=== PATIENT | female | born 1960 | race Caucasian/White ===

== ENCOUNTER → 2018-06-05 16:00 | Outpatient (CLI) | payer OTHER, SELFPAY | PROVIDERS: PCP Internal Medicine | DX: Z23 Encounter for immunization (principal) | CPT/HCPCS: 90471; 90686 ==

== ENCOUNTER → 2018-11-13 15:13 | Outpatient (CLI) | payer OTHER, SELFPAY ==
--- NOTE | 2018-11-13 | DI.RAD.S_ITS ---
PROCEDURE: XR HAND LT MIN 3V INDICATIONS: Ongoing left hand swelling and injury in March. TECHNIQUE: 3 views of the hand(s) acquired. COMPARISON: None. FINDINGS: Bones: No fractures or dislocations. Carpal bones are normally aligned. No suspicious bony lesions. First CMC and triscaphe joint degeneration, mild. Diffuse interphalangeal joint degeneration most pronounced the DIP joints of the index and middle finger where there are chronic ununited osteophytes. Soft tissues: No suspicious soft tissue calcifications. IMPRESSION: Mild degenerative changes as above. If the patient's pain or other symptoms persist, consider further evaluation with MRI Dictated by: Kana Narvaez M.D. on 11/13/2018 at 16:24 Approved by: Kana Narvaez M.D. on 11/13/2018 at 16:38
== END ==
PROVIDERS: PCP Internal Medicine; Visit Provider Internal Medicine
DX: S69.92XA Unspecified injury of left wrist, hand and finger(s), initial encounter (principal); M79.89 Other specified soft tissue disorders; M18.12 Unilateral primary osteoarthritis of first carpometacarpal joint, left hand; M19.042 Primary osteoarthritis, left hand
CPT/HCPCS: 73130

== ENCOUNTER 2019-01-23 12:15 | Outpatient (RCR) | payer OTHER, SELFPAY ==
--- NOTE | 2018-12-26 17:30 | PT.OIE ---
Current Diagnoses Primary osteoarthritis, unspecified hand (12/26/18) Localized swelling, mass and lump, left upper limb (12/26/18) Past Surgical History Status post dilation and curettage Status post hysterectomy Provider Visit Care Team Role Provider Type AMANDA Walls Attending Provider Advanced Security System Analyst Primary Care Provider Specialty: Family Practice Address: [address] [place] [address], [id number] Email: [email or web address] Physical Therapy Initial Evaluation PT-OP-A Visit Information Start: 12/26/18 16:59 Freq: Status: Active Protocol: Document 12/26/18 17:00 EA (Rec: 12/26/18 17:11 EA [id number]) Out-Patient Physical Therapy Visit Information Visit Information Visit Type Initial Evaluation Visit Start Time 16:00 Visit Stop Time 16:45 Total Visit Minutes 45 Visit Number 1 Evaluation Information Evaluation Date 12/26/18 PT-OP-B Current Condition Start: 12/26/18 16:59 Freq: Status: Active Protocol: Document 12/26/18 17:00 EA (Rec: 12/26/18 17:11 EA [id number]) Current Condition History of Current Condition Onset Date Last summer (2017) History of Current Condition No significant past medical history except she recalled when she played volley ball with her grand kids and thinks jammed her middle finger in the ball. No treatment given and just live day by day. Patient had an x-ray recently with a results of multiple hand joint OA. Prior Treatments and Tests Recent hand X-rays with a results of DIP OA at 2nd and 3rd Future Testing and Treatments Planned None identified Treatment Goals Patient/Caregiver Goals Patient would like to get rid of the pain and be able to use her hand for work. Prior Functional Status Baseline Function- ADL's Independent Baseline Function- Mobility Independent Baseline Function- Gait No limitation Baseline Function- Work/School Patient is indep in all task prior to initial onset (Last summer 2017). 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 Patient Reported Progress Same OP-PT Pain Assessment Location Left Hand Pain Location Details Base of left middle finger at CMC Intensity 3 Scale Used Numeric (1 - 10) Description Aching Tender Tightness With Movement Frequency Intermittent Pain Aggravating Factors Activity PT-OP-E Functional Tests Start: 12/26/18 16:59 Freq: Status: Active Protocol: Document 12/26/18 17:20 EA (Rec: 12/27/18 07:29 EA [id number]) Functional Tests Other 1 Name of Test Consulting Application Engineer Dynamometer Score R: 24 ; L 12 Comment Significant weakness to left hand PT-OP-J Posture/Palpation/Skin Start: 12/26/18 16:59 Freq: Status: Active Protocol: Document 12/26/18 17:20 EA (Rec: 12/27/18 07:29 EA [id number]) Posture Evaluation Comments Posture Comments left middle finger position comfort in flexed Palpation Assessment Location One Palpation Location L 3rd MCP joint base Palpation Findings Soft Tissue Tightness Tenderness Skin Assessment Other Assessments Skin Assessment Comments Very slight localized swelling PT-OP-K Range of Motion Start: 12/26/18 16:59 Freq: Status: Active Protocol: Document 12/26/18 17:30 EA (Rec: 12/31/18 07:28 EA [id number]) Finger Goniometric Range of Motion Finger Measured in Degrees Right Third MCP Flexion Active (degrees) 80 MCP Extension Active (degrees) 100 Left Third MCP Flexion Active (degrees) 70 MCP Flexion Passive (degrees) 80 PIP Flexion Active (degrees) 100 PT-OP-L Special Tests Start: 12/26/18 16:59 Freq: Status: Active Protocol: Document 12/26/18 17:20 EA (Rec: 12/27/18 07:29 EA [id number]) Special Tests Wrist/Hand Special Tests Danelle-Littler Test Test Results - PT-OP-M Strength Start: 12/26/18 16:59 Freq: Status: Active Protocol: Document 12/26/18 17:20 EA (Rec: 12/27/18 07:31 EA [id number]) Finger/Thumb Strength Finger Manual Muscle Testing Left Third Flexion (fingers C8) 3+ Fair+ Extension (thumb C8) 4- Good- Adduction 3+ Fair+ Abduction (fingers T1) 3+ Fair+ Hand Consulting Application Engineer/Pinch Strength Hand Dominance Hand Dominance Right Hand Strength Right Consulting Application Engineer (lbs) 24 Left Consulting Application Engineer (lbs) 12 PT-OP-Q Treatments Start: 12/27/18 07:29 Freq: Status: Active Protocol: Document 12/26/18 17:20 EA (Rec: 12/27/18 07:31 EA [id number]) Self-Care/Home Management Treatment Education Patient Education Home Exercise Program Joint Protection Pain Management PT-OP-R Modalities Start: 12/26/18 16:59 Freq: Status: Active Protocol: Document 12/26/18 17:20 EA (Rec: 12/27/18 07:29 EA [id number]) Paraffin Bath Treatment Left Hand Treatment Technique Glove Number Wax Layers (layers) 6 Duration (minutes) 10 Patient Tolerance Good PT-OP-T Assessment and Plan Start: 12/26/18 16:59 Freq: Status: Active Protocol: Document 12/26/18 17:00 EA (Rec: 12/26/18 17:11 EA [id number]) Physical Therapy Assessment Rehab Potential Rehabilitation Potential Good Evaluation Complexity Number of Personal Factors/Comorbidities 0 Number of Body Systems Impaired 1-2 Clinical Presentation at Evaluation Evolving Impairments Impairments Activity Tolerance Functional Activities Pain ROM Strength Goals Three Impairment Impaired L 3rd CMC and MCP flexion ROM Shelter Goal (LTG) Patient will demonstrate normal 3rd CMC and MCP flexion to perform daily gripping task effectively. LTG Duration 4 wks Two Impairment No HEP given Shelter Goal (LTG) Patient will comply and perform HEP independently. LTG Duration 3 wks One Impairment Hand mobile equipment mechanic (dynamometer) score L: 12lbs Sand Mixer Machine Goal (LTG) Patient will increase dynamometer handgrip strength to at least 20lbs LTG Duration 5 wks Assessment Summary Assessment Pleasant 58 y/o F patient with a referring diagnosis of left hand localized swelling. Today patient exhibited weakness in gripping activities due to pain and stiffness to left hand. Assessment reveals decreased active ROM to 3rd CMC and MCP flexion but WFL in passive. Palpation reveals grade 2/4 tenderness with very slight swelling but no acute signs of inflammation. Pt would benefit with skilled PT to address ROM, weakness, hand function deficits. PT shows a good potential recovery. Physical Therapy Plan Frequency and Duration Frequency of Treatment 1x/Week Duration of Treatment 6 Plan of Care Start Date 12/26/18 Plan of Care End Date 02/06/19 Therapeutic Interventions Therapeutic Interventions Home Exercise Program Joint Mobilizations Manual Therapy Patient/Caregiver Education Self-Care/Home Management Soft Tissue Mobilization Taping Therapeutic Activities Therapeutic Exercises Modalities Cold Pack/Ice Massage Electric Stimulation Hot Packs Paraffin Bath Ultrasound Next Visit Focus/Plan Next Note Type Treatment Note Next Visit Plan Increase ROM, gripping strengthening, pain control, Review HEP
--- NOTE | 2018-12-26 17:30 | PT.OPPOC ---
Current Diagnoses Primary osteoarthritis, unspecified hand (12/26/18) Localized swelling, mass and lump, left upper limb (12/26/18) Provider Visit Care Team Role Provider Type AMANDA Walls Attending Provider Advanced Foster Care Case Manager Primary Care Provider Specialty: Family Practice Address: [address] [place] [address], [place], [address] Email: [email or web address] Plan Of Care PT-OP-T Assessment and Plan Start: 12/26/18 16:59 Freq: Status: Active Protocol: Document 12/26/18 17:00 EA (Rec: 12/26/18 17:11 EA [id number]) Physical Therapy Assessment Rehab Potential Rehabilitation Potential Good Evaluation Complexity Number of Personal Factors/Comorbidities 0 Number of Body Systems Impaired 1-2 Clinical Presentation at Evaluation Evolving Impairments Impairments Activity Tolerance Functional Activities Pain ROM Strength Goals Three Impairment Impaired L 3rd CMC and MCP flexion ROM Baccarat Dealer Goal (LTG) Patient will demonstrate normal 3rd CMC and MCP flexion to perform daily gripping task effectively. LTG Duration 4 wks Two Impairment No HEP given Snf Goal (LTG) Patient will comply and perform HEP independently. LTG Duration 3 wks One Impairment Hand oss architect (dynamometer) score L: 12lbs Snf Goal (LTG) Patient will increase dynamometer handgrip strength to at least 20lbs LTG Duration 5 wks Assessment Summary Assessment Pleasant 58 y/o F patient with a referring diagnosis of left hand localized swelling. Today patient exhibited weakness in gripping activities due to pain and stiffness to left hand. Assessment reveals decreased active ROM to 3rd CMC and MCP flexion but WFL in passive. Palpation reveals grade 2/4 tenderness with very slight swelling but no acute signs of inflammation. Pt would benefit with skilled PT to address ROM, weakness, hand function deficits. PT shows a good potential recovery. Physical Therapy Plan Frequency and Duration Frequency of Treatment 1x/Week Duration of Treatment 6 Plan of Care Start Date 12/26/18 Plan of Care End Date 02/06/19 Therapeutic Interventions Therapeutic Interventions Home Exercise Program Joint Mobilizations Manual Therapy Patient/Caregiver Education Self-Care/Home Management Soft Tissue Mobilization Taping Therapeutic Activities Therapeutic Exercises Modalities Cold Pack/Ice Massage Electric Stimulation Hot Packs Paraffin Bath Ultrasound Next Visit Focus/Plan Next Note Type Treatment Note Next Visit Plan Increase ROM, gripping strengthening, pain control, Review HEP Plan of Care Dates Plan of Care Start Date 12/26/18 Plan of Care End Date 02/06/19 Please Sign and Return: I have reviewed this Plan of Care and certify that the skilled therapy services above are required to meet the patient?s needs. Physician Signature Date Printed Name and Credentials Clinical Instructor Signature Printed Name and Credentials
--- NOTE | 2019-01-02 13:03 | PT.OTN ---
Current Diagnoses Primary osteoarthritis, unspecified hand (01/01/19) Localized swelling, mass and lump, left upper limb (01/01/19) Physical Therapy Treatment Note PT-OP-A Visit Information Start: 12/26/18 16:59 Freq: Status: Active Protocol: Document 12/26/18 17:00 EA (Rec: 12/26/18 17:11 EA [id number]) Out-Patient Physical Therapy Visit Information Visit Information Visit Type Initial Evaluation Visit Start Time 16:00 Visit Stop Time 16:45 Total Visit Minutes 45 Visit Number 1 Evaluation Information Evaluation Date 12/26/18 PT-OP-B Current Condition Start: 12/26/18 16:59 Freq: Status: Active Protocol: Document 12/26/18 17:00 EA (Rec: 12/26/18 17:11 EA [id number]) Current Condition History of Current Condition Onset Date Last summer (2017) History of Current Condition No significant past medical history except she recalled when she played volley ball with her grand kids and thinks jammed her middle finger in the ball. No treatment given and just live day by day. Patient had an x-ray recently with a results of multiple hand joint OA. Prior Treatments and Tests Recent hand X-rays with a results of DIP OA at 2nd and 3rd Future Testing and Treatments Planned None identified Treatment Goals Patient/Caregiver Goals Patient would like to get rid of the pain and be able to use her hand for work. Prior Functional Status Baseline Function- ADL's Independent Baseline Function- Mobility Independent Baseline Function- Gait No limitation Baseline Function- Work/School Patient is indep in all task prior to initial onset (Last summer 2017). 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 Still catches sometimes. PT-OP-E Functional Tests Start: 12/26/18 16:59 Freq: Status: Active Protocol: Document 12/26/18 17:20 EA (Rec: 12/27/18 07:29 EA [id number]) Functional Tests Other 1 Name of Test Eye Clinic Manager Dynamometer Score R: 24 ; L 12 Comment Significant weakness to left hand PT-OP-J Posture/Palpation/Skin Start: 12/26/18 16:59 Freq: Status: Active Protocol: Document 12/26/18 17:20 EA (Rec: 12/27/18 07:29 EA [id number]) Posture Evaluation Comments Posture Comments left middle finger position comfort in flexed Palpation Assessment Location One Palpation Location L 3rd MCP joint base Palpation Findings Soft Tissue Tightness Tenderness Skin Assessment Other Assessments Skin Assessment Comments Very slight localized swelling PT-OP-K Range of Motion Start: 12/26/18 16:59 Freq: Status: Active Protocol: Document 12/26/18 17:30 EA (Rec: 12/31/18 07:28 EA [id number]) Finger Goniometric Range of Motion Finger Measured in Degrees Right Third MCP Flexion Active (degrees) 80 MCP Extension Active (degrees) 100 Left Third MCP Flexion Active (degrees) 70 MCP Flexion Passive (degrees) 80 PIP Flexion Active (degrees) 100 PT-OP-L Special Tests Start: 12/26/18 16:59 Freq: Status: Active Protocol: Document 12/26/18 17:20 EA (Rec: 12/27/18 07:29 EA [id number]) Special Tests Wrist/Hand Special Tests Bunnel-Littler Test Test Results - PT-OP-M Strength Start: 12/26/18 16:59 Freq: Status: Active Protocol: Document 12/26/18 17:20 EA (Rec: 12/27/18 07:31 EA [id number]) Finger/Thumb Strength Finger Manual Muscle Testing Left Third Flexion (fingers C8) 3+ Fair+ Extension (thumb C8) 4- Good- Adduction 3+ Fair+ Abduction (fingers T1) 3+ Fair+ Hand Eye Clinic Manager/Pinch Strength Hand Dominance Hand Dominance Right Hand Strength Right Eye Clinic Manager (lbs) 24 Left Eye Clinic Manager (lbs) 12 PT-OP-Q Treatments Start: 12/27/18 07:29 Freq: Status: Active Protocol: Document 01/01/19 15:15 [facility] (Rec: 01/02/19 13:02 [facility] [id number]) Therapeutic Exercises Sitting Exercises AAROM wrist sup w/weight Resistance 1# Reps/Minutes 10x wrist flex Resistance 1# Reps/Minutes 10x wrist ext Resistance 1# Reps/Minutes 10x stretch finger/hand intrinsics Reps/Minutes 2x30 wrist flexor stretches Sitting Exercise Name both elbow straight and elbow bent Reps/Minutes 2x30 AROM hand intrinsics Side bilateral Reps/Minutes 10x finger flexd intrinsics Side bilateral Reps/Minutes 10x Comments manual overpressure hand/finger squeeze Side bilateral Reps/Minutes 10x Comments manual overpressure Manual Therapy Treatment Soft Tissue Mobilization 3rd digit flexors Mobilization Type Strumming Sustained Pressure PT-OP-R Modalities Start: 12/26/18 16:59 Freq: Status: Active Protocol: Document 01/01/19 15:15 [facility] (Rec: 01/02/19 13:02 [facility] [id number]) Ultrasound Therapy Treatment 3rd MCP Treatment Duration (minutes) 8 Patient Position Sitting Coupling Medium Ultrasound Gel Applicator Size (cm2) 2 Frequency Setting (mHz) 3 Mode Setting Pulsed Duty Cycle 50% Intensity Setting (w/cm2) 1.0 PT-OP-T Assessment and Plan Start: 12/26/18 16:59 Freq: Status: Active Protocol: Document 01/01/19 15:15 [facility] (Rec: 01/02/19 13:02 [facility] [id number]) Physical Therapy Assessment Goals Three Impairment Impaired L 3rd CMC and MCP flexion ROM Half-Way Goal (LTG) Patient will demonstrate normal 3rd CMC and MCP flexion to perform daily gripping task effectively. LTG Duration 4 wks Two Impairment No HEP given Mutual Fund Sales Agent Goal (LTG) Patient will comply and perform HEP independently. LTG Duration 3 wks One Impairment Hand vulcanizing machine operator (dynamometer) score L: 12lbs Mutual Fund Sales Agent Goal (LTG) Patient will increase dynamometer handgrip strength to at least 20lbs LTG Duration 5 wks Assessment Summary Assessment Patient noting improvement in finger ROM, strengthening, and dec in pain. Sharp pain persists at times with catching of tendon. Physical Therapy Plan Frequency and Duration Frequency of Treatment 1x/Week Duration of Treatment 6 Plan of Care Start Date 12/26/18 Plan of Care End Date 02/06/19 Therapeutic Interventions Therapeutic Interventions Home Exercise Program Joint Mobilizations Manual Therapy Patient/Caregiver Education Self-Care/Home Management Soft Tissue Mobilization Taping Therapeutic Activities Therapeutic Exercises Modalities Cold Pack/Ice Massage Electric Stimulation Hot Packs Paraffin Bath Ultrasound Next Visit Focus/Plan Next Note Type Treatment Note Next Visit Plan Increase ROM, gripping strengthening, pain control, Review HEP
--- NOTE | 2019-01-23 15:59 | PT.OTN ---
Current Diagnoses Primary osteoarthritis, unspecified hand (01/23/19) Localized swelling, mass and lump, left upper limb (01/23/19) Physical Therapy Treatment Note PT-OP-A Visit Information Start: 12/26/18 16:59 Freq: Status: Active Protocol: Document 01/23/19 15:11 EA (Rec: 01/23/19 15:16 EA [id number]) Out-Patient Physical Therapy Visit Information Visit Information Visit Type Treatment Note Visit Start Time 12:15 Visit Stop Time 13:00 Total Visit Minutes 45 Visit Number 3 PT-OP-B Current Condition Start: 12/26/18 16:59 Freq: Status: Active Protocol: Document 12/26/18 17:00 EA (Rec: 12/26/18 17:11 EA [id number]) Current Condition History of Current Condition Onset Date Last summer (2017) History of Current Condition No significant past medical history except she recalled when she played volley ball with her grand kids and thinks jammed her middle finger in the ball. No treatment given and just live day by day. Patient had an x-ray recently with a results of multiple hand joint OA. Prior Treatments and Tests Recent hand X-rays with a results of DIP OA at 2nd and 3rd Future Testing and Treatments Planned None identified Treatment Goals Patient/Caregiver Goals Patient would like to get rid of the pain and be able to use her hand for work. Prior Functional Status Baseline Function- ADL's Independent Baseline Function- Mobility Independent Baseline Function- Gait No limitation Baseline Function- Work/School Patient is indep in all task prior to initial onset (Last summer 2017). 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 No limitation with gripping actvities Baseline Function- Recreation/Hobbies Used to play volley ball with her grand kids Current Functional Impairments (Reported) Functional Limitations- ADL's Indepedent but limited with gripping activities using left hand Functional Limitations- Mobility/Gait Indep Functional Limitations- Work/School Indep a year ago with no limitation at work as Cook at Functional Limitations- Recreation/ Limited with all activities Hobbies that has a gripping activities Functional Limitations- Other Indep PT-OP-C Subjective Start: 12/26/18 16:59 Freq: Status: Active Protocol: Document 01/01/19 15:15 SAK (Rec: 01/02/19 13:02 SAK [id number]) OP-PT Subjective Patient Comments Patient Comments Reports compliance to HEP, finger feeling a little better . Still catches sometimes. PT-OP-E Functional Tests Start: 12/26/18 16:59 Freq: Status: Active Protocol: Document 01/23/19 15:11 EA (Rec: 01/23/19 15:16 EA [id number]) Functional Tests Other 1 Name of Test Crystal Evaluator Dynamometer Score R: 24 ; L 18 Comment Much improvement PT-OP-J Posture/Palpation/Skin Start: 12/26/18 16:59 Freq: Status: Active Protocol: Document 12/26/18 17:20 EA (Rec: 12/27/18 07:29 EA [id number]) Posture Evaluation Comments Posture Comments left middle finger position comfort in flexed Palpation Assessment Location One Palpation Location L 3rd MCP joint base Palpation Findings Soft Tissue Tightness Tenderness Skin Assessment Other Assessments Skin Assessment Comments Very slight localized swelling PT-OP-K Range of Motion Start: 12/26/18 16:59 Freq: Status: Active Protocol: Document 12/26/18 17:30 EA (Rec: 12/31/18 07:28 EA [id number]) Finger Goniometric Range of Motion Finger Measured in Degrees Right Third MCP Flexion Active (degrees) 80 MCP Extension Active (degrees) 100 Left Third MCP Flexion Active (degrees) 70 MCP Flexion Passive (degrees) 80 PIP Flexion Active (degrees) 100 PT-OP-L Special Tests Start: 12/26/18 16:59 Freq: Status: Active Protocol: Document 12/26/18 17:20 EA (Rec: 12/27/18 07:29 EA [id number]) Special Tests Wrist/Hand Special Tests Bunnel-Littler Test Test Results - PT-OP-M Strength Start: 12/26/18 16:59 Freq: Status: Active Protocol: Document 12/26/18 17:20 EA (Rec: 12/27/18 07:31 EA [id number]) Finger/Thumb Strength Finger Manual Muscle Testing Left Third Flexion (fingers C8) 3+ Fair+ Extension (thumb C8) 4- Good- Adduction 3+ Fair+ Abduction (fingers T1) 3+ Fair+ Hand Crystal Evaluator/Pinch Strength Hand Dominance Hand Dominance Right Hand Strength Right Crystal Evaluator (lbs) 24 Left Crystal Evaluator (lbs) 12 PT-OP-Q Treatments Start: 12/27/18 07:29 Freq: Status: Active Protocol: Document 01/23/19 15:11 EA (Rec: 01/23/19 15:16 EA [id number]) Therapeutic Exercises Sitting Exercises 1 Sitting Exercise Name Putty gripping Resistance yellow-green Reps/Minutes x 10 reps Comments HEP comp stretch finger/hand intrinsics Reps/Minutes 2x30 wrist flexor stretches Sitting Exercise Name both elbow straight and elbow bent Reps/Minutes 2x30 AROM hand intrinsics Side bilateral Reps/Minutes 10x finger flexd intrinsics Side bilateral Reps/Minutes 10x Comments manual overpressure hand/finger squeeze Side bilateral Reps/Minutes 10x Comments manual overpressure Manual Therapy Treatment Soft Tissue Mobilization 3rd digit flexors Mobilization Type Cross-Friction Self-Care/Home Management Treatment Education Patient Education Home Exercise Program Joint Protection Pain Management PT-OP-R Modalities Start: 12/26/18 16:59 Freq: Status: Active Protocol: Document 01/23/19 15:11 EA (Rec: 01/23/19 15:16 EA [id number]) Paraffin Bath Treatment Left Hand Treatment Technique Glove Number Wax Layers (layers) 6 Duration (minutes) 10 Patient Tolerance Good Ultrasound Therapy Treatment 3rd MCP Treatment Duration (minutes) 5 Patient Position Sitting Coupling Medium Ultrasound Gel Applicator Size (cm2) 2 Frequency Setting (mHz) 3 Mode Setting Pulsed Duty Cycle 50% Intensity Setting (w/cm2) 1.0 PT-OP-T Assessment and Plan Start: 12/26/18 16:59 Freq: Status: Active Protocol: Document 01/23/19 15:57 EA (Rec: 01/23/19 15:59 EA [id number]) Physical Therapy Assessment Assessment Summary Assessment 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 Patient requested to be discharged at this time due to high copay and would like to cont. HEP. I have educated patient with HEP and pain management. Physical Therapy Plan Discharge Physical Therapy Discharge Reasons Patient Request
== END 2019-01-23 16:31 | disposition home or self-care (01) ==
LOC: PHYS 12:15
PROVIDERS: PCP Internal Medicine; Visit Provider Internal Medicine
DX: R22.32 Localized swelling, mass and lump, left upper limb (principal); M19.049 Primary osteoarthritis, unspecified hand
CPT/HCPCS: 97018; 97035; 97110; 97140; 97161

== ENCOUNTER → 2019-06-20 16:23 | Outpatient (CLI) | payer OTHER, SELFPAY | PROVIDERS: PCP Internal Medicine | DX: Z23 Encounter for immunization (principal) | CPT/HCPCS: 90471; 90686 ==

== ENCOUNTER → 2020-06-18 | Outpatient (CLI) | payer OTHER, SELFPAY | PROVIDERS: PCP Internal Medicine; Referring Provider Internal Medicine; Visit Provider Internal Medicine | DX: Z23 Encounter for immunization (principal) | CPT/HCPCS: 90471; 90686 ==

== ENCOUNTER → 2020-08-18 14:29 | Outpatient (CLI) | payer OTHER, SELFPAY ==
--- NOTE | 2020-08-18 14:35 | DI.RAD.S_ITS ---
PROCEDURE: XR FOOT RT MIN 3V INDICATIONS: to see if its broken TECHNIQUE: 3 views of the foot were acquired. COMPARISON: None. FINDINGS: Bones: There is a minimally displaced fracture at the base of the proximal phalanx of the left 5th digit. There is likely extension into the MTP joint. Soft tissues: No tibiotalar joint effusion. Achilles tendon appears normal. IMPRESSION: Right proximal 5th phalangeal fracture as above. Dictated by: Clare Navarrete M.D. on 08/18/2020 at 15:39 Approved by: Clare Navarrete M.D. on 08/18/2020 at 15:40
== END ==
PROVIDERS: PCP Internal Medicine; Referring Provider Nurse Practitioner Family; Visit Provider Nurse Practitioner Family
DX: M79.671 Pain in right foot (principal); S92.511A Displaced fracture of proximal phalanx of right lesser toe(s), initial encounter for closed fracture; X58.XXXA Exposure to other specified factors, initial encounter
CPT/HCPCS: 73630

== ENCOUNTER → 2020-08-20 14:06 | Outpatient (CLI) | payer OTHER, SELFPAY ==
--- NOTE | 2020-08-20 | DI.RAD.S_ITS ---
PROCEDURE: XR ANKLE RT MIN 3V INDICATIONS: right ankle pain TECHNIQUE: 3 views of the ankle were acquired. COMPARISON: None. FINDINGS: Bones: No fractures or dislocations. Ankle mortise is normally aligned. No suspicious bony lesions. Soft tissues: No tibiotalar joint effusion. Achilles tendon appears normal. IMPRESSION: No trauma found. Source of current pain is not seen. Incidental note is made of a plantar fascia insertion spur at the posterior calcaneus, moderate in size. Dictated by: Armando Worley M.D. on 08/20/2020 at 14:48 Approved by: Armando Worley M.D. on 08/20/2020 at 14:49
== END ==
PROVIDERS: PCP Internal Medicine; Referring Provider Internal Medicine; Visit Provider Internal Medicine
DX: M79.671 Pain in right foot (principal); M77.31 Calcaneal spur, right foot
CPT/HCPCS: 73610

== ENCOUNTER → 2020-09-23 12:30 | Outpatient (CLI) | payer OTHER, SELFPAY ==
[2020-09-23] MEDS: COVID-19 VACC(MODERNA-1)/PF 100 MCG/0.5 ML VIAL IM (12:43)
== END ==
PROVIDERS: PCP Internal Medicine; Visit Provider Internal Medicine
DX: Z23 Encounter for immunization (principal)
CPT/HCPCS: 0011A; 91301

== ENCOUNTER → 2020-10-20 12:39 | Outpatient (CLI) | payer OTHER, SELFPAY ==
[2020-10-20] MEDS: COVID-19 VACC #2, MRNA(MOD) 100 MCG/0.5 ML VIAL IM (12:41)
== END ==
PROVIDERS: PCP Internal Medicine; Visit Provider Internal Medicine
DX: Z23 Encounter for immunization (principal)
CPT/HCPCS: 0012A; 91301

== ENCOUNTER → 2020-12-07 11:41 | Outpatient (CLI) | payer OTHER, SELFPAY ==
--- NOTE | 2020-12-07 11:42 | DI.MG.S_ITS ---
BILATERAL DIGITAL SCREENING MAMMOGRAM 3D/2D WITH CAD: 12/07/2020 CLINICAL: Routine screening. Comparison is made to exams dated: 11/06/2017 mammogram, 09/14/2015 mammogram, and 11/29/2006 mammogram - [facility]. The tissue of both breasts is predominantly fatty. Current study was also evaluated with a Computer Aided Detection (CAD) system. No significant masses, calcifications, or other findings are seen in either breast. There has been no significant interval change. IMPRESSION: NEGATIVE There is no mammographic evidence of malignancy. A 1 year screening mammogram is recommended. This exam was interpreted at Station ID: [id number]. NOTE: For mammograms, a report in lay terms will be sent to the patient. Approximately 15% of breast malignancies will not be visualized mammographically. In the management of a palpable breast mass, a negative mammogram must not discourage biopsy of a clinically suspicious lesion. Electronically Signed By: Tej Palencia acr/penrad:12/07/2020 12:41:56 letter sent: Normal Exam ACR BI-RADS Category 1: Negative [id number]
== END ==
PROVIDERS: PCP Internal Medicine; Referring Provider Internal Medicine; Visit Provider Internal Medicine
DX: Z12.31 Encounter for screening mammogram for malignant neoplasm of breast (principal); M85.851 Other specified disorders of bone density and structure, right thigh; Z78.0 Asymptomatic menopausal state; Z87.891 Personal history of nicotine dependence
CPT/HCPCS: 77063; 77067; 77080

== ENCOUNTER → 2021-05-13 09:25 | Outpatient (CLI) | payer OTHER, SELFPAY ==
[2021-05-13 11:26] LABS: COVID19 -Nasal RAPID Negative (Negative)
== END ==
PROVIDERS: PCP Internal Medicine; Visit Provider Nurse Practitioner
DX: Z20.822 Contact with and (suspected) exposure to COVID-19 (principal); R51.9 Headache, unspecified
CPT/HCPCS: 87635

== ENCOUNTER → 2021-05-17 08:05 | Outpatient (CLI) | payer OTHER, SELFPAY ==
[2021-05-17 13:00] LABS: COVID19 -Nasal RAPID Negative (Negative)
== END ==
PROVIDERS: PCP Internal Medicine; Visit Provider Physician Assistant
DX: Z20.822 Contact with and (suspected) exposure to COVID-19 (principal)
CPT/HCPCS: 87635

== ENCOUNTER → 2021-05-20 11:14 | Outpatient (CLI) | payer OTHER, SELFPAY ==
[2021-05-20 13:10] LABS: COVID19 -Nasal RAPID Negative (Negative)
== END ==
PROVIDERS: PCP Internal Medicine; Referring Provider Nurse Practitioner; Visit Provider Nurse Practitioner
DX: Z20.822 Contact with and (suspected) exposure to COVID-19 (principal)
CPT/HCPCS: 87635

== ENCOUNTER → 2021-06-18 09:34 | Outpatient (CLI) | payer OTHER, SELFPAY ==
[2021-06-18 13:12] LABS: COVID19 -Nasal RAPID Negative (Negative)
== END ==
PROVIDERS: PCP Internal Medicine; Visit Provider Physician Assistant
DX: Z20.822 Contact with and (suspected) exposure to COVID-19 (principal)
CPT/HCPCS: 87635

== ENCOUNTER → 2021-06-22 09:53 | Outpatient (CLI) | payer OTHER, SELFPAY ==
[2021-06-22 12:50] LABS: COVID19 -Nasal RAPID Negative (Negative)
== END ==
PROVIDERS: PCP Internal Medicine; Referring Provider Nurse Practitioner Family; Visit Provider Nurse Practitioner Family
DX: Z20.822 Contact with and (suspected) exposure to COVID-19 (principal)
CPT/HCPCS: 87635

== ENCOUNTER → 2021-06-24 14:22 | Outpatient (CLI) | payer OTHER, SELFPAY | PROVIDERS: PCP Internal Medicine; Referring Provider Internal Medicine; Visit Provider Internal Medicine | DX: Z23 Encounter for immunization (principal) | CPT/HCPCS: 90471; 90686 ==

== ENCOUNTER → 2021-06-28 11:41 | Outpatient (CLI) | payer OTHER, SELFPAY ==
[2021-06-28 13:33] LABS: COVID19 -Nasal RAPID Negative (Negative)
== END ==
PROVIDERS: PCP Internal Medicine; Visit Provider Nurse Practitioner Family
DX: Z20.822 Contact with and (suspected) exposure to COVID-19 (principal)
CPT/HCPCS: 87635

== ENCOUNTER → 2021-07-23 08:17 | Outpatient (CLI) | payer OTHER, SELFPAY ==
[2021-07-23] MEDS: COVID-19 VACC #3, MRNA(MOD) 50 MCG/0.25 ML VIAL IM (08:25)
== END ==
PROVIDERS: PCP Internal Medicine; Visit Provider Internal Medicine
DX: Z23 Encounter for immunization (principal)
CPT/HCPCS: 0013A; 91301

== ENCOUNTER → 2022-07-08 17:08 | Outpatient (CLI) | payer OTHER, SELFPAY | PROVIDERS: PCP Internal Medicine; Referring Provider Internal Medicine; Visit Provider Internal Medicine | DX: Z23 Encounter for immunization (principal) | CPT/HCPCS: 90471; 90686 ==

== ENCOUNTER → 2023-07-13 15:41 | Outpatient (CLI) | payer OTHER, SELFPAY | PROVIDERS: PCP Internal Medicine; Referring Provider Family Medicine; Visit Provider Family Medicine | DX: Z23 Encounter for immunization (principal) | CPT/HCPCS: 90471; 90686 ==

== ENCOUNTER → 2023-09-22 14:33 | Outpatient (CLI) | payer OTHER, SELFPAY ==
--- NOTE | 2023-09-22 14:35 | DI.MG.S_ITS ---
BILATERAL DIGITAL SCREENING MAMMOGRAM 3D/2D WITH CAD: 09/22/2023 CLINICAL: Routine screening. Comparison is made to exams dated: 12/07/2020 mammogram, 11/06/2017 mammogram, and 09/14/2015 mammogram - [facility]. Both breasts are almost entirely fatty (category a/<25% glandular tissue). Current study was also evaluated with a Computer Aided Detection (CAD) system. No significant masses, calcifications, or other findings are seen in either breast. There has been no significant interval change. IMPRESSION: NEGATIVE There is no mammographic evidence of malignancy. A 1 year screening mammogram is recommended. Based on the Tyrer Cuzick model (a risk assessment model) the patient's lifetime risk is 3.7% and her 10 year risk is 1.6%. According to the ACR, ACS, and NCCN guidelines, an annual breast MRI exam along with mammogram is recommended if the patient's lifetime risk is 20% or greater. This exam was interpreted at Station ID: [id number]. NOTE: For mammograms, a report in lay terms will be sent to the patient. Approximately 15% of breast malignancies will not be visualized mammographically. In the management of a palpable breast mass, a negative mammogram must not discourage biopsy of a clinically suspicious lesion. Electronically Signed By: El barksdale/mk:09/22/2023 15:31:19 letter sent: Normal Exam ACR BI-RADS Category 1: Negative [id number]
== END ==
LOC: MAMMO 14:33
PROVIDERS: PCP Internal Medicine; Referring Provider Internal Medicine; Visit Provider Internal Medicine
DX: Z12.31 Encounter for screening mammogram for malignant neoplasm of breast (principal)
CPT/HCPCS: 77063; 77067

== ENCOUNTER → 2024-07-12 17:54 | Outpatient (CLI) | payer OTHER, SELFPAY | PROVIDERS: PCP Internal Medicine; Referring Provider Internal Medicine; Visit Provider Internal Medicine | DX: Z23 Encounter for immunization (principal) | CPT/HCPCS: 90471; 90656 ==

== ENCOUNTER → 2024-10-04 13:45 | Outpatient (CLI) | payer OTHER, SELFPAY ==
--- NOTE | 2024-10-04 13:46 | DI.RAD.S_ITS ---
PROCEDURE: XR SHOULDER RT MIN 2V INDICATIONS: Shoulder pain TECHNIQUE: 3 views of the shoulder were acquired. COMPARISON: None. FINDINGS: Bones: No fractures or dislocations. [id number] acromioclavicular joint osteoarthritic changes are seen. Mild glenohumeral joint osteoarthritic changes also noted. No suspicious bony lesions. Visualized ribs appear intact. Soft tissues: No suspicious soft tissue calcifications. IMPRESSION: No acute shoulder fracture or dislocation. [id number] right acromioclavicular joint osteoarthritis and mild glenohumeral joint osteoarthritis. No gross soft tissue abnormalities. Dictated by: Gt Manley M.D. on 10/04/2024 at 15:28 Approved by: Gt Manley M.D. on 10/04/2024 at 15:29
== END ==
PROVIDERS: PCP Internal Medicine; Referring Provider Nurse Practitioner Family; Visit Provider Nurse Practitioner Family
DX: M19.011 Primary osteoarthritis, right shoulder (principal); M25.511 Pain in right shoulder
CPT/HCPCS: 73030